=== PATIENT | female | born 1995 | race Caucasian/White ===

== ENCOUNTER → 2018-08-20 | Emergency (ER) | payer BC, OTHER ==
[~2018-08-20] VITALS: Ht 165.1 cm; Wt 65.8 kg
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
--- OUTSIDE RECORDS SUMMARY | 2018-08-20 12:15 | XMS REPORT ---
Author FAVIAN Umanzor [facility], [facility] Address [address], [place] [id number] Care Team Providers Care Trademark Affixer Name Role Phone FAVIAN BURNHAM Unavailable PROBLEMS Unknown Problems ALLERGIES No Known Allergies SOCIAL HISTORY Never Assessed PLAN OF CARE VITAL SIGNS MEDICATIONS Unknown Medications RESULTS No Results PROCEDURES No Known procedures IMMUNIZATIONS No Known Immunizations MEDICAL (GENERAL) HISTORY Type Description Date Surgical History L arm Surgical History L knee surg, ACL repair/meniscal surg 07/1712
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
[2018-08-20 12:47] VITALS: BP 110/59
== END | disposition home or self-care (01) ==
LOC: ER 12:11
DX: M25.511 Pain in right shoulder (principal); M25.472 Effusion, left ankle; F17.210 Nicotine dependence, cigarettes, uncomplicated; R40.2142 Coma scale, eyes open, spontaneous, at arrival to emergency department; R40.2252 Coma scale, best verbal response, oriented, at arrival to emergency department; R40.2362 Coma scale, best motor response, obeys commands, at arrival to emergency department; W01.0XXA Fall on same level from slipping, tripping and stumbling without subsequent striking against object, initial encounter
CPT/HCPCS: 99281